=== PATIENT | female | born 1955 | race Asian ===

== ENCOUNTER 2019-01-17 18:00 | Emergency (ER) | payer OTHER ==
[~2019-01-17] VITALS: Ht 157.5 cm; Wt 59.0 kg
[2019-01-17 18:00] VITALS: BP 143/76
== END 2019-01-17 18:42 | disposition home or self-care (01) ==
LOC: ER 18:04
DX: H10.9 Unspecified conjunctivitis (principal); E11.9 Type 2 diabetes mellitus without complications; I10 Essential (primary) hypertension
CPT/HCPCS: 99283; A4606